=== PATIENT | male | born 1995 | race African-American/Black ===

== ENCOUNTER 2020-12-25 02:30 | Emergency (ER) | payer OTHER ==
[2020-12-25 02:34] VITALS: BP 136/78; PULSE 91; TEMP 98.6
--- NOTE | 2020-12-25 02:43 | ED ---
Medical Clearance HPI - General Chief complaint: Medical Clearance Stated complaint: clearance Time Seen by Provider: 12/25/20 02:40 Source: patient, police, RN notes reviewed, old records reviewed Mode of arrival: ambulatory Limitations: no limitations - History of Present Illness Initial comments: This is a 25-year-old male DF for evaluation patient is brought in by PD for x- ray regarding TB evaluation for transport back to his [place] living, patient is given a be deported MD Complaint: medical clearance requested (Medically clear for deported patient) -: unknown Reason for Medical Clearance: laboratory abnormality (Concern over possible TB) Place: home Traumatic Symptoms: denies traumatic injury Treatments Prior to Arrival: none Allergies/Adverse reactions: Allergies Allergy/AdvReac Type Severity Reaction Status Date / Time No Known Allergies Allergy Verified 12/25/20 02:34 Review of Systems ROS Statement: Those systems with pertinent positive or pertinent negative responses have been documented in the HPI. ROS Other: All systems not noted in ROS Statement are negative. Past Medical History Past Medical History: No Reported History History of Any Multi-Drug Resistant Organisms: None Reported Additional Past Surgical History / Comment(s): vasecotmy Past Psychological History: No Psychological Hx Reported Smoking Status: Never smoker Past Alcohol Use History: None Reported Past Drug Use History: None Reported General Exam Limitations: no limitations General appearance: alert, in no apparent distress Head exam: Present: atraumatic, normocephalic, normal inspection Eye exam: Present: normal appearance, PERRL, EOMI. Absent: scleral icterus, conjunctival injection, periorbital swelling ENT exam: Present: normal exam, mucous membranes moist Neck exam: Present: normal inspection. Absent: tenderness, meningismus, lymphadenopathy Respiratory exam: Present: normal lung sounds bilaterally. Absent: respiratory distress, wheezes, rales, rhonchi, stridor Cardiovascular Exam: Present: regular rate, normal rhythm, normal heart sounds. Absent: systolic murmur, diastolic murmur, rubs, gallop, clicks GI/Abdominal exam: Present: soft, normal bowel sounds. Absent: distended, tenderness, guarding, rebound, rigid Extremities exam: Present: normal inspection, full ROM, normal capillary refill. Absent: tenderness, pedal edema, joint swelling, calf tenderness Back exam: Present: normal inspection Neurological exam: Present: alert, oriented X3, CN II-XII intact Psychiatric exam: Present: normal affect, normal mood Skin exam: Present: warm, dry, intact, normal color. Absent: rash Course Vital Signs 12/25/20 12/25/20 02:31 02:54 Temperature 98.6 F Pulse Rate 91 Respiratory 20 18 Rate Blood Pressure 136/78 O2 Sat by Pulse 100 Oximetry - Reevaluation(s) Reevaluation #1: Patient has no complaints Patient's TB chest x-rays negative PD informed of medical clearance Reevaluation #2: medical record is reviewed Patient has improvement of symptoms, continues to feel better. Patient informed results, questions answered Patient feels stable for discharge home Medical Decision Making - Medical Decision Making 25 male to the ER for x-ray to rule out TB, x-rays clean and patient can be transferred to care of police Disposition Clinical Impression: Medical clearance for incarceration Disposition: HOME SELF-CARE Condition: Good Instructions (If sedation given, give patient instructions): Normal Exam (ED) Is patient prescribed a controlled substance at d/c from ED?: No Referrals: None,Stated [Primary Care Provider] - 1-2 days
[2020-12-25 02:59] VITALS: RESP 18
--- NOTE | 2020-12-25 03:04 | XR ---
EXAM: XR Chest, 2 Views CLINICAL HISTORY: ITS.REASON XR Reason: pain TECHNIQUE: Frontal and lateral views of the chest. COMPARISON: No relevant prior studies available. FINDINGS: Lungs: No consolidation or mass. Pleural space: No effusion. Heart: No cardiomegaly. Bones/joints: No acute findings. IMPRESSION: No acute cardiopulmonary process.
== END 2020-12-25 03:16 | disposition home or self-care (01) ==
LOC: EC 02:30
DX: Z02.89 Encounter for other administrative examinations (principal)
CPT/HCPCS: 71046; 99283